=== PATIENT | female | born 1985 | race Caucasian/White ===

== ENCOUNTER 2017-04-23 19:54 | Observation (INO) ==
[2017-04-23] MEDS: *HR* Nalbuphine 20 MG/ML AMPUL IVP PRN ×2 (19:16→21:47)
[2017-04-23 19:18] LABS: Bilirubin,Urine Negative (Negative); Blood,Urine Moderate (Negative); Clarity,Urine Clear (Clear); Color,Urine Yellow (Yellow); Glucose,Urine (UA) Normal (Normal); Ketones,Urine Negative (Negative); Leukocyte Esterase,Urine Negative (Negative); Nitrite,Urine Negative (Negative); Protein,Urine Negative (Neg-Trace); Specific Gravity,Urine 1.014 (1.010-1.025); Urobilinogen,Urine Normal (Normal)
[2017-04-23 19:21] LABS: Bacteria,Urine None Seen per hpf (None-Few); Hyaline Casts,Urine None Seen per lpf (None-Few); RBC,Urine 0-3 per hpf (0-3); Squamous Epithelial Cell,Urine Moderate per lpf (None-Few); WBC,Urine 0-3 per hpf (0-3)
[2017-04-23 19:32] LABS: Amphetamine Screen,Urine Negative ng/mL (Cutoff=1000); Barbiturate Screen,Urine Negative ng/mL (Cutoff=200); Benzodiazepines Screen,Urine Negative ng/mL (Cutoff=200); Cannabinoid Screen,Urine Negative ng/mL (Cutoff = 50); Cocaine Screen,Urine Negative ng/mL (Cutoff= 300); Opiate Screen,Urine Negative ng/mL (Cutoff=300); Phencyclidine Screen,Urine Negative ng/mL (Cutoff=25)
--- NOTE | 2017-04-23 19:36 | OB/GYN History & Physical ---
Date of Encounter: 04/23/17 Time of Encounter: 19:31 Assessment and Plan (1) Right flank pain Current visit: Yes Status: Acute IV fluids Ancef 1 gram IV q8 hours CBC Retroperitoneal ultrasound Pain control POC per consult with Dr Gonzales Potential right obstructing stone per retroperitoneal ultrasound. Discussed case with Dr Gross at [facility]. Dr Gross accepts patient for transfer of care. (2) 31 weeks gestation of Current visit: Yes Status: Acute History of Present Illness Chief complaint: Right flank pain HPI: Ms. Camacho is a 31 year old at 31 weeks and 5 days that presents to labor and delivery triage with c/o flank pain that began yesterday. She states the pain is on right flank and radiates to the suprapubic region. She states that pain has gotten progressively worse. She denies fever, chills, and headache. She denies urinary symptoms, but states her urine stream is not as strong as it has been. She states positive movement. She denies cramps, vaginal bleeding, vaginal discharge, and vaginal leaking of fluid. She states she was diagnosed with bilateral kidney stones at the [facility] in [place] over the Summer. She stopped taking her calcium citrate when she had a positive test. Past Med Surg Social Fam HX - Past Medical History Psychiatric history: depression - Past Surgical History Surgical History: other - Social History Smoking Status: Never smoker Alcohol use: none Drug use: none - Family History Mother History Unknown: Yes Hx Family Cardiac Disorders: Yes (HTN) Obstetrical History - Pregnancies : 1 Para: 0 Term: 0 : 0 Ab's: 0 Livin Medications and Allergies Pantoprazole Sodium [Protonix] 40 mg PO DAILY 04/23/17 [History] Tablet 1 tab PO DAILY 04/23/17 [History] valACYclovir [Valtrex] 500 mg PO DAILY 04/23/17 [History] 3 Allergy/AdvReac Type Severity Reaction Status Date / Time doxycycline Allergy Hives Verified 04/23/17 18:51 pregabalin [From Lyrica] Allergy See Verified 04/23/17 18:49 Comments Leuprolide [From Lupron] AdvReac See Verified 04/23/17 18:51 Comments Review of System OB All systems PM: reviewed and no additional remarkable complaints except as stated Exam - Constitutional Constitutional: well developed, well nourished, no acute distress, average body habitus - HEENT HEENT: Normocephaly, Mucus Membranes Moist - Neck Neck exam: full ROM - Lungs Respiratory exam: CTAB - Cardiovascular Cardiovascular exam: RRR, +S1, +S2 - Abdomen Abdomen: Present: bowel sounds normal, gravid, non tender - Extremities Extremities exam: normal capillary refill, normal inspection, radial pulses palpable and symmetrical Deep Tendon Reflex Grade: 1+ Diminished - Uterus Uterus exam: Present: normal size, normal contour. Absent: tender - Comments Comments: Right flank and CVA tenderness. Results Result Diagrams: 04/23/17 19:20 Abnormal lab results Urine Blood Moderate (Negative) H 04/23/17 18:15 All other labs normal. - VTE Reasons for not Prescribing Prophylaxis: Treatment not Indicated - Low risk for VTE
[2017-04-23 19:37] LABS: Basophils # 0.1 K/mcL (0.0-0.2); Basophils % 0.5 %; Eosinophils # 0.1 K/mcL (0.0-0.6); Eosinophils % 0.8 %; Hematocrit 32.6 % (35.3-44.9); Hemoglobin 11.1 g/dL (11.5-15.4); Immature Granulocytes % 1.6 % (0-4); Lymphocytes # 1.1 K/mcL (0.6-4.6); Lymphocytes % 8.3 %; Mean Corpuscular Hemoglobin 30.2 pg (28.0-33.3); Mean Corpuscular Volume 88.6 fL (83.0-100.0); Mean Platelet Volume 9.8 fL (9.4-12.4); Monocytes # 0.9 K/mcL (0.0-1.3); Monocytes % 6.6 %; Neutrophils # 10.9 K/mcL (1.6-8.9); Platelet Count 164 K/mcL (140-400); Red Blood Count 3.68 M/mcL (3.82-4.97); Red Cell Distribution Width 12.7 % (11.5-14.5); Segmented Neutrophils % 82.2 %
[~2017-04-23 19:54] MED LIST: Ringers Solution, Lactated 1,000 ML IVC SCH; Ringers Solution, Lactated 1,000 ML ONE
[2017-04-23] MEDS ORDERED: ceFAZolin 1,000 MG in Water for inj. (sterile) 10 ML IVP SCH (20:00)
--- NOTE | 2017-04-23 21:51 | Discharge Summary ---
Date of Encounter: 04/23/17 Time of Encounter: 21:48 - Discharge Diagnosis (1) Right flank pain Priority: Primary Status: Acute Comments: Transfer via BLS squad with LR to [facility] labor and delivery Accepted by Dr Jurgen Gross at 2142 (2) 31 weeks gestation of Priority: Secondary Status: Acute - Discharge Medications Home Medications: Pantoprazole Sodium [Protonix] 40 mg PO DAILY 04/23/17 [History] Tablet 1 tab PO DAILY 04/23/17 [History] valACYclovir [Valtrex] 500 mg PO DAILY 04/23/17 [History] Allergies/Adverse Reactions: 3 Allergy/AdvReac Type Severity Reaction Status Date / Time doxycycline Allergy Hives Verified 04/23/17 18:51 pregabalin [From Lyrica] Allergy See Verified 04/23/17 18:49 Comments Leuprolide [From Lupron] AdvReac See Verified 04/23/17 18:51 Comments Data Procedures and tests throughout hospitalization: Laboratory Tests 04/23/17 04/23/17 04/23/17 18:15 18:15 19:20 WBC 13.3 H RBC 3.68 L Hgb 11.1 L Hct 32.6 L MCV 88.6 MCH 30.2 MCHC 34.0 RDW 12.7 Plt Count 164 MPV 9.8 Immature Gran % 1.6 Seg Neutrophils % 82.2 Lymphocytes % 8.3 Monocytes % 6.6 Eosinophils % 0.8 Basophils % 0.5 Neutrophils # 10.9 H Lymphocytes # 1.1 Monocytes # 0.9 Eosinophils # 0.1 Basophils # 0.1 Urine Color Yellow Urine Clarity Clear Urine pH 7.0 Ur Specific Apison 1.014 Urine Protein Negative Urine Glucose (UA) Normal Urine Ketones Negative Urine Blood Moderate H Urine Nitrite Negative Urine Bilirubin Negative Urine Urobilinogen Normal Ur Leukocyte Esterase Negative Urine Microscopic RBC 0-3 Urine Microscopic WBC 0-3 Ur Squamous Epith Cells Moderate H Urine Bacteria None Seen Hyaline Casts None Seen Ur Culture Indicated? NO Urine Opiates Screen Negative Ur Barbiturates Screen Negative Ur Phencyclidine Scrn Negative Ur Amphetamines Screen Negative U Benzodiazepines Scrn Negative Urine Cocaine Screen Negative U Marijuana (THC) Screen Negative Labs on day of discharge: Labs from last 24 hours 04/23/17 04/23/17 04/23/17 19:20 18:15 18:15 WBC 13.3 H RBC 3.68 L Hgb 11.1 L Hct 32.6 L MCV 88.6 MCH 30.2 MCHC 34.0 RDW 12.7 Plt Count 164 MPV 9.8 Immature Gran % 1.6 Seg Neutrophils % 82.2 Lymphocytes % 8.3 Monocytes % 6.6 Eosinophils % 0.8 Basophils % 0.5 Neutrophils # 10.9 H Lymphocytes # 1.1 Monocytes # 0.9 Eosinophils # 0.1 Basophils # 0.1 Urine Color Yellow Urine Clarity Clear Urine pH 7.0 Ur Specific Apison 1.014 Urine Protein Negative Urine Glucose (UA) Normal Urine Ketones Negative Urine Blood Moderate H Urine Nitrite Negative Urine Bilirubin Negative Urine Urobilinogen Normal Ur Leukocyte Esterase Negative Urine Microscopic RBC 0-3 Urine Microscopic WBC 0-3 Ur Squamous Epith Cells Moderate H Urine Bacteria None Seen Hyaline Casts None Seen Ur Culture Indicated? NO Urine Opiates Screen Negative Ur Barbiturates Screen Negative Ur Phencyclidine Scrn Negative Ur Amphetamines Screen Negative U Benzodiazepines Scrn Negative Urine Cocaine Screen Negative U Marijuana (THC) Screen Negative - Impressions ITS Impressions Retroperitoneum Ultrasound 04/23/17 20:00 IMPRESSION: Bilateral hydronephrosis, right greater than left. Suspected bilateral nephrolithiasis. Nonvisualization of right ureteral jet. The findings are concerning for possible obstructing right calculus. No significant postvoid residual. D/ / 04/23/2017 21:14:23 Milan Staton MD / bcarter Interpreting Provider: Milan Staton MD Date of admission: 04/23/17 17:58 Discharging clinician: Chetna Ro Anticipated date of discharge: 04/23/17 - Patient Status Disposition: Transfer Other Condition: Fair Functional capacity at discharge: independent ambulation Overall status at discharge: patient is not back to baseline - Discharge Instructions Follow Up With: Delvin Soto MD [Partnered Physician] - Hospital Course SCALEMAKER Reason for admission: other Discharge diagnosis: other Time Attestation: Total time spent providing and/or coordinating discharge services: Time Spent: Less than 30 minutes - VTE Reasons for not Prescribing Prophylaxis: Treatment not Indicated - Low risk for VTE
[2017-04-24] MEDS ORDERED: ceFAZolin 1,000 MG in Water for inj. (sterile) 10 ML IVP SCH
== END 2017-04-23 22:45 | disposition other institution (70) ==
LOC: 1NENULAB
PROVIDERS: ADMIT Obstetrics & Gynecology; ATTEND Obstetrics & Gynecology

== ENCOUNTER 2017-06-19 09:53 | Inpatient (IN) ==
[2017-06-19] MEDS ORDERED: CeFAZolin Premix DUPLEX 2,000 MG/50 ML BAG IVPB ONE (10:17)
[2017-06-19] MEDS ORDERED: Famotidine 20 MG/2 ML VIAL IVP PRN (10:17)
[2017-06-19] MEDS ORDERED: Metoclopramide 10 MG/2 ML VIAL IVP PRN ×2 (10:17→17:42)
[2017-06-19] MEDS ORDERED: *HR* FentaNYL (PF) 100 MCG/2 ML VIAL ONE (10:18)
[2017-06-19] MEDS ORDERED: Morphine Sulfate/PF 5mg/10mL Vial ONE (10:18)
[2017-06-19] MEDS ORDERED: *HR* Oxytocin 10 UNIT/ML VIAL IM ONE (10:19)
[2017-06-19] MEDS ORDERED: Water for inj. (sterile) 10 ML IV ONE (10:19)
[2017-06-19] MEDS ORDERED: Ondansetron 4 MG/2 ML VIAL ONE (10:19)
[2017-06-19] MEDS ORDERED: EPHEDrine 50 MG/ML VIAL ONE (10:19)
[2017-06-19] MEDS ORDERED: Ringers Solution, Lactated 1,000 ML IVC SCH ×2 (10:30→11:30)
[2017-06-19 10:47] LABS: Basophils % 0.4 %; Eosinophils # 0.1 K/mcL (0.0-0.6); Eosinophils % 1.1 %; Hematocrit 34.9 % (35.3-44.9); Hemoglobin 11.7 g/dL (11.5-15.4); Immature Granulocytes % 1.8 % (0-4); Lymphocytes # 1.1 K/mcL (0.6-4.6); Mean Corpuscular HGB Conc 33.5 g/dL (31.6-35.5); Mean Corpuscular Hemoglobin 29.4 pg (28.0-33.3); Mean Corpuscular Volume 87.7 fL (83.0-100.0); Mean Platelet Volume 10.2 fL (9.4-12.4); Monocytes # 0.7 K/mcL (0.0-1.3); Monocytes % 6.6 %; Neutrophils # 8.2 K/mcL (1.6-8.9); Platelet Count 185 K/mcL (140-400); Red Blood Count 3.98 M/mcL (3.82-4.97); Red Cell Distribution Width 13.3 % (11.5-14.5); Segmented Neutrophils % 79.1 %
--- NOTE | 2017-06-19 10:52 | OB/GYN History & Physical ---
Date of Encounter: 06/19/17 Time of Encounter: 10:48 Assessment and Plan (1) delivery indicated due to breech presentation Current visit: Yes Status: Acute Scheduled this afternoon with Dr. Talbot CS orders placed including prophylactic abx Admit for scheduled surgery (2) with 39 completed weeks gestation Current visit: Yes Status: Acute (3) Hx of herpes genitalis Current visit: Yes Status: Acute On Valtrex Scheduled CS as above History of Present Illness Chief complaint: scheduled C/S for breech presentation HPI: Ms. Camacho is a 32 year old female at 39w6d here for scheduled c- section due to breech presentation. Gestation otherwise uncomplicated; no history of pre-eclampsia, PIH, or GDM. Patient denies any acute complaints including headache, visual disturbance/blurring, palpitations, SOA, nausea/ vomiting, dysuria, or worsening pedal edema (does have some ongoing edema that is unchanged today). + movement, -VB, -LOF. Past Med Surg Social Fam HX - Past Medical History Attestation: Yes The following information was validated with the patient. Source: patient Medical history: kidney stones Psychiatric history: depression - Past Surgical History Surgical History: other (multiple laparoscopies for endometriosis) - Social History Smoking Status: Never smoker Alcohol use: none Drug use: none - Family History Mother Adopted: No Living Status: Still Living Hx Family Cardiac Disorders: No Hx Family Respiratory Disorders: No Hx Family Cancer: Yes (skin cancer) Hx Family GI Disorders: No Hx Family Genitourinary Disorders: No Hx Family Endocrine Disorder: No Hx Family Musculoskeletal Disorders: No Hx Family Neuromuscular Disorders: No Hx Family Neurologic Disorders: No Hx Family HEENT Disorders: No Hx Family Autoimmune Disorders: No Hx Family Reproductive Disorders: No Hx Family Psychosocial Disorders: No Hx Family Medical Disorders: No Obstetrical History - Pregnancies : 1 Para: 0 Medications and Allergies Pantoprazole Sodium [Protonix] 40 mg PO DAILY 04/23/17 [History] Tablet 1 tab PO DAILY 04/23/17 [History] valACYclovir [Valtrex] 500 mg PO DAILY 04/23/17 [History] 3 Allergy/AdvReac Type Severity Reaction Status Date / Time doxycycline Allergy Hives Verified 04/23/17 18:51 pregabalin [From Lyrica] Allergy See Verified 04/23/17 18:49 Comments Leuprolide [From Lupron] AdvReac See Verified 04/23/17 18:51 Comments Review of System OB All systems PM: reviewed and no additional remarkable complaints except as stated Exam - Constitutional Constitutional: well developed, well nourished, no acute distress - HEENT HEENT: Normocephaly - Lungs Respiratory exam: CTAB - Cardiovascular Cardiovascular exam: RRR, +S1, +S2 - Abdomen Abdomen: Present: gravid Results Result Diagrams: 06/19/17 10:20 All other labs normal. - Attending Attestation I examined this patient and my medical decision-making was reviewed with the Resident Physician. I agree with the documented findings, disposition and treatment plan as described except to the extent set forth below. Patient is scanned at bedside to confirm Leopolds of breech presentation. Risks, benefits, and alternatives are discussed. Patient wishes to proceed with primary section and informed consent is obtained. All questions answered for the patient and her family. Carolyn Talbot DO
--- NOTE | 2017-06-19 11:15 | Anesthesia Evaluation PreOp ---
Date of Encounter: 06/19/17 Time of Encounter: 11:00 - Past History Planned Operation: Primary Cardiac History: Denies any Significant Hx Pulmonary History: Denies Any Significant HX GROUNDING ENGINEER History: Denies Any Significant HX Other Medical History: GERD Anesthesia History: No Prior Anesthetic Complications : Yes (39 week 6 days) Test: Positive () Alcohol Use: none Drug use: none Medications and Allergies Pantoprazole Sodium [Protonix] 40 mg PO DAILY 04/23/17 [History] Tablet 1 tab PO DAILY 04/23/17 [History] valACYclovir [Valtrex] 500 mg PO DAILY 04/23/17 [History] 3 Allergy/AdvReac Type Severity Reaction Status Date / Time doxycycline Allergy Hives Verified 04/23/17 18:51 pregabalin [From Lyrica] Allergy See Verified 04/23/17 18:49 Comments Leuprolide [From Lupron] AdvReac See Verified 04/23/17 18:51 Comments - Meds/Allergy Pre-op Review Medications Reviewed: Yes Allergies Reviewed: Yes Beta Blockers on Current Med List: No Anesthesia Results - Labs 06/19/17 10:20 Anesthesia Exam O2 Sat Height 1.73 m Height 1.73 m Weight 93.2 kg Height: 5'8 Weight: 93 kg NPO (# of Hours): MN Pain Scale: 0 - HEENT Pupil (Motor): Pupils equal, EOMI Mallampati: II Teeth: Normal Oral Opening: Greater than 3 - GROUNDING ENGINEER LOC: Oriented GROUNDING ENGINEER Motor: Normal RUE, Normal LUE, Normal RLE, Normal LLE, Normal Face GROUNDING ENGINEER Sensory: Normal: RUE, LUE, RLE, LLE, Face - Cardiac Rhythm: Regular Murmur: None JVD: No Carotid Bruit: No - Pulmonary Breath Sounds: bilateral Clear Respiratory Effort: Symmetrical Anesthesia Assess/Plan ASA Score: 2 Modified Vanita Scale for Level of Consciousness: Cooperative, oriented, and tranquil Anesthetic Plan: Regional Monitoring Plan: Standard Monitors Recovery Plan: PACU (Discussed SAB, possible GA, agrees to proceed)
[2017-06-19 11:16] LABS: Amphetamine Screen,Urine Negative ng/mL (Cutoff=1000); Barbiturate Screen,Urine Negative ng/mL (Cutoff=200); Benzodiazepines Screen,Urine Negative ng/mL (Cutoff=200); Cannabinoid Screen,Urine Negative ng/mL (Cutoff = 50); Cocaine Screen,Urine Negative ng/mL (Cutoff= 300); Opiate Screen,Urine Negative ng/mL (Cutoff=300); Phencyclidine Screen,Urine Negative ng/mL (Cutoff=25)
[2017-06-19] MEDS ORDERED: Naloxone 0.4 MG/ML INJ IVP PRN (11:24)
[2017-06-19] MEDS ORDERED: Acetaminophen IV 1,000 MG/100 ML INFUS..BTL IVPB ONE (11:24)
[2017-06-19] MEDS ORDERED: *HR* OxyCODONE/APAP 5/325 TABLET PO PRN ×2 (11:24→17:14)
[2017-06-19] MEDS ORDERED: Ondansetron 4 MG/2 ML VIAL IVP ONE (11:24)
[2017-06-19] MEDS ORDERED: Ringers Solution, Lactated 1,000 ML ONE (14:15)
[2017-06-19] MEDS ORDERED: *HR* OxyCODONE Immed Rel 5 MG TABLET PO PRN ×2 (15:15→17:42)
[2017-06-19] MEDS ORDERED: MORPHINE SUL Oral CONC 10 MG/0.5 ML ORAL.SYG SL PRN (15:15)
--- NOTE | 2017-06-19 15:16 | OB/GYN Procedure Note ---
Section - Date of procedure: 06/19/17 Preop diagnosis: breech Post-op diagnosis: same Procedure: section, primary low transverse Surgeon: Carolyn Talbot Estimated blood loss (cc): 500 Was there an high school assistant principal present: Yes Software Business Analyst: Sarbina Resendiz Television Engineering Teacher: Reece Elizondo Anesthesia Type: Spinal section complications: none Disposition: L&D Recovery Room Specimens: Placenta (hold) - Infant (s) Infant A Delivery Date: 06/19/17 Delivery Time: 14:29 Presentation: tobi breech Gender: Female Viability: Viable Pounds: 7 Ounces: 0 Gram Weight: 3.165 kg at 1 minute: 8 at 5 minutes: 9 Specimens collected: cord blood Placenta: spontaneous Cord: nuchal cord, 3 umbilical vessels - Narrative Narrative: Patient was taken to the operative suite and placed under spinal anesthetic. She was then prepped and draped in normal sterile fashion in the dorsal supine position. Timeout was then performed. Antibiotics were given at room time. SCDs are on and active. Pfannenstiel skin incision is then made and carried through to underlying layer of fascia with the Bovie. The fascia was then incised in the midline and incision extended laterally with the Myers scissors. The fascia was tented up and dissected off the rectus muscles sharply. The rectus muscles were in the midline and the peritoneum was tented up and entered sharply with the Metzenbaum scissors. The peritoneal incision was then extended bluntly. The bladder blade was then inserted and the vesicouterine peritoneum was entered sharply. Bladder flap was created digitally. A low transverse uterine incision was then made. The infant breech was brought to the incision and the infant was delivered using fundal pressure. There was a loose nuchal cord that was delivered and reduced. Cord was clamped and cut. Infant was handed to waiting nursery staff. Placenta delivered spontaneously complete and intact with a three -vessel cord. The uterus was cleared of all clots and debris using moist laparotomy sponge. The uterine incision was then closed using 0 Vicryl in a running locked fashion. A second layer of the same suture was used to obtain excellent hemostasis. The abdomen was then cleared of all clots and debris using copious irrigation. The fascial incision was then closed using 0 Vicryl in a running fashion. The skin was closed using 4-0 Vicryl in a subcuticular fashion. Steri- Strips and sterile dressing are then placed. Mother and infant taken to recovery in stable condition.
--- NOTE | 2017-06-19 17:14 | Anesthesia Evaluation Post Op ---
Date of Encounter: 06/19/17 Time of Encounter: 17:13 - Lungs Lungs: Clear Ascult./Percussion - Airway Airway: Non-obstructed - Cardiovascular Regular Rate, Baseline Rhythm - Mental Status Mental Status: Alert & Oriented, Answers Appropriately - Pain Pain Scale: 8 (refused regional tap block, will maintain on PO meds post op on ) Pain Scale used: Numeric (1 - 10) - Nausea Vomiting Nausea Vomiting: Not Present - Hydration Hydration: Ice chips, Marti catheter - Discharge PostOp Status: Transfer Patient to floor
[2017-06-19] MEDS ORDERED: Sennosides 8.6 MG TABLET PO PRN (17:42)
[2017-06-19] MEDS ORDERED: Ondansetron 4 MG/2 ML VIAL IVP PRN (17:42)
[2017-06-19] MEDS ORDERED: Acetaminophen 325 MG TABLET PO PRN (17:42)
[2017-06-19] MEDS ORDERED: Rho Immune Globulin 1,500 UNIT SYRINGE IM ONE (17:42)
[2017-06-19] MEDS: Oxytocin 20 units/ LR 1000 mL 20 UNIT/1,000 ML BAG IVC SCH (17:51)
[2017-06-20] MEDS ORDERED: *HR* Nalbuphine 20 MG/ML AMPUL IVP ONE (00:17)
[2017-06-20] MEDS: Simethicone 80 MG TAB.CHEW PO PRN ×3 (00:20→17:34)
[2017-06-20] MEDS: Oxytocin 20 units/ LR 1000 mL 20 UNIT/1,000 ML BAG IVC SCH (01:30)
[2017-06-20] MEDS: *HR* OxyCODONE/APAP 5/325 TABLET PO PRN ×3 (03:03→22:29)
[2017-06-20 04:25] LABS: Basophils % 0.4 %; Eosinophils # 0.1 K/mcL (0.0-0.6); Eosinophils % 0.9 %; Hematocrit 27.4 % (35.3-44.9); Immature Granulocytes % 1.2 % (0-4); Lymphocytes % 10.6 %; Mean Corpuscular HGB Conc 33.9 g/dL (31.6-35.5); Mean Corpuscular Hemoglobin 29.6 pg (28.0-33.3); Mean Corpuscular Volume 87.3 fL (83.0-100.0); Mean Platelet Volume 10.2 fL (9.4-12.4); Monocytes # 0.8 K/mcL (0.0-1.3); Monocytes % 7.8 %; Neutrophils # 7.6 K/mcL (1.6-8.9); Platelet Count 136 K/mcL (140-400); Red Blood Count 3.14 M/mcL (3.82-4.97); Red Cell Distribution Width 13.4 % (11.5-14.5); Segmented Neutrophils % 79.1 %
[2017-06-20 04:39] LABS: Hemoglobin 9.3 g/dL (11.5-15.4)
[2017-06-20] MEDS: Ibuprofen 600 MG TABLET PO PRN ×3 (05:10→20:41)
[2017-06-20] MEDS: Prenatal Vit/FA 1 EACH TABLET PO SCH (08:29)
--- NOTE | 2017-06-20 09:29 | OB/GYN Progress Note ---
Date of Encounter: 06/20/17 Time of Encounter: 09:25 - Assessment and Plan (1) S/P section Current Visit: Yes Status: Acute Stable POD #1. Continue current management, anticipate D/c tomorrow. (2) anemia Current Visit: Yes Status: Acute continue iron supplementation. Subjective - Subjective Principal diagnosis: Patient reports: appetite normal, voiding normally, pain well controlled, ambulating normally Mabie: doing well Objective - Vital Signs Latest vital signs: Vital Signs Temp Pulse Resp BP Pulse Ox 06/20/17 08:10 98.1 F 78 16 104/51 96 06/20/17 04:25 98.5 F 90 14 105/61 96 06/20/17 00:05 99.3 F 90 16 94/62 98 06/19/17 20:45 98.9 F 83 16 117/67 99 06/19/17 19:45 97.7 F 76 14 121/63 95 06/19/17 18:56 97.6 F 83 16 111/68 98 06/19/17 17:45 98.1 F 80 16 111/68 99 Intake and Output 06/19/17 06/20/17 06/20/17 23:59 07:59 15:59 Intake Total 1119 / 1119 610 / 610 Output Total 600 / 600 1425 / 1425 300 / 300 Balance -600 / -600 -306 / -306 310 / 310 Intake: IV Fluids 999 / 999 Pitocin 20 unit In 1,000 ml @ 999 / 999 125 mls/hr IVC .Q8H ZACK Rx#: [id number] Oral 120 / 120 610 / 610 Output: Urine 300 / 300 Catheter 600 / 600 1425 / 1425 Other: Meal Breakfast Percent of Meal Consumed 100% Weight 91.1 kg 91 kg Patient Weight 06/20/17 23:59 Weight 91 kg - Exam Lungs: bilateral: normal Chest: Normal S1, Normal S2 Extremities: Present: normal Abdomen: Present: normal appearance, soft Incision: Present: dressed Comments: fundus at U - Labs Labs: Laboratory Results - last 24 hr 06/19/17 06/19/17 06/19/17 10:17 10:20 15:00 WBC 10.4 RBC 3.98 Hgb 11.7 Hct 34.9 L MCV 87.7 MCH 29.4 MCHC 33.5 RDW 13.3 Plt Count 185 MPV 10.2 Immature Gran % 1.8 Seg Neutrophils % 79.1 Lymphocytes % 11.0 Monocytes % 6.6 Eosinophils % 1.1 Basophils % 0.4 Neutrophils # 8.2 Lymphocytes # 1.1 Monocytes # 0.7 Eosinophils # 0.1 Basophils # 0.0 Urine Opiates Screen Negative Ur Barbiturates Screen Negative Ur Phencyclidine Scrn Negative Ur Amphetamines Screen Negative U Benzodiazepines Scrn Negative Urine Cocaine Screen Negative U Marijuana (THC) Screen Negative Baby's Blood Type A RH NEGATIVE Mother's Blood Type A RH NEGATIVE Rhogam Indicated NO 06/20/17 04:07 WBC 9.6 RBC 3.14 L Hgb 9.3 L D Hct 27.4 L MCV 87.3 MCH 29.6 MCHC 33.9 RDW 13.4 Plt Count 136 L MPV 10.2 Immature Gran % 1.2 Seg Neutrophils % 79.1 Lymphocytes % 10.6 Monocytes % 7.8 Eosinophils % 0.9 Basophils % 0.4 Neutrophils # 7.6 Lymphocytes # 1.0 Monocytes # 0.8 Eosinophils # 0.1 Basophils # 0.0 Urine Opiates Screen Ur Barbiturates Screen Ur Phencyclidine Scrn Ur Amphetamines Screen U Benzodiazepines Scrn Urine Cocaine Screen U Marijuana (THC) Screen Baby's Blood Type Mother's Blood Type Rhogam Indicated
[2017-06-20] MEDS ORDERED: *HR* OxyCODONE/APAP 5/325 TABLET PO ONE (17:41)
[2017-06-20 21:43] VITALS: BP 102/65
[2017-06-21] MEDS: *HR* OxyCODONE/APAP 5/325 TABLET PO PRN (07:25)
[2017-06-21] MEDS: Prenatal Vit/FA 1 EACH TABLET PO SCH (08:44)
[2017-06-21] MEDS: Ibuprofen 600 MG TABLET PO PRN (08:47)
--- NOTE | 2017-06-21 09:10 | Discharge Summary ---
Date of Encounter: 06/21/17 Time of Encounter: 09:17 - Discharge Diagnosis (1) delivery indicated due to breech presentation Priority: Primary Status: Acute Comments: POD#2 -- well-healing incision site without dehiscence nor any local or systemic signs of infection Will discharge home this afternoon in good/stable condition Rx for PO analgesia as well as stool softener (2) with 39 completed weeks gestation Priority: Primary Status: Acute (3) Hx of herpes genitalis Priority: Secondary Status: Chronic - Discharge Medications Prescriptions: OxyCODONE/APAP 5/325 [Percocet 5/325 MG] 1 each PO Q4HR PRN 7 Days #20 tablet PRN Reason: Moderate pain 4-6 Acetaminophen [Tylenol] 325 mg PO Q6HR PRN #30 tablet PRN Reason: Fever/Pain Docusate [Colace] 100 mg PO BID #60 capsule Ferrous Sulfate 325 mg PO DAILY #30 tablet Mupirocin [Bactroban Oint] 1 appl TP BID #1 tube Home Medications: Pantoprazole Sodium [Protonix] 40 mg PO DAILY 04/23/17 [History] Tablet 1 tab PO DAILY 04/23/17 [History] valACYclovir [Valtrex] 500 mg PO DAILY 04/23/17 [History] Acetaminophen [Tylenol] 325 mg PO Q6HR PRN #30 tablet 06/21/17 [Rx] Docusate [Colace] 100 mg PO BID #60 capsule 06/21/17 [Rx] Ferrous Sulfate 325 mg PO DAILY #30 tablet 06/21/17 [Rx] Mupirocin [Bactroban Oint] 1 appl TP BID #1 tube 06/21/17 [Rx] OxyCODONE/APAP 5/325 [Percocet 5/325 MG] 1 each PO Q4HR PRN 7 Days #20 tablet [Rx] Vit/FA 1 each PO DAILY tablet 06/21/17 [Rx] Allergies/Adverse Reactions: 3 Allergy/AdvReac Type Severity Reaction Status Date / Time doxycycline Allergy Hives Verified 04/23/17 18:51 pregabalin [From Lyrica] Allergy See Verified 04/23/17 18:49 Comments Leuprolide [From Lupron] AdvReac See Verified 04/23/17 18:51 Comments Data Procedures and tests throughout hospitalization: Laboratory Tests 06/19/17 06/19/17 06/19/17 10:17 10:20 15:00 WBC 10.4 RBC 3.98 Hgb 11.7 Hct 34.9 L MCV 87.7 MCH 29.4 MCHC 33.5 RDW 13.3 Plt Count 185 MPV 10.2 Immature Gran % 1.8 Seg Neutrophils % 79.1 Lymphocytes % 11.0 Monocytes % 6.6 Eosinophils % 1.1 Basophils % 0.4 Neutrophils # 8.2 Lymphocytes # 1.1 Monocytes # 0.7 Eosinophils # 0.1 Basophils # 0.0 Urine Opiates Screen Negative Ur Barbiturates Screen Negative Ur Phencyclidine Scrn Negative Ur Amphetamines Screen Negative U Benzodiazepines Scrn Negative Urine Cocaine Screen Negative U Marijuana (THC) Screen Negative Baby's Blood Type A RH NEGATIVE Mother's Blood Type A RH NEGATIVE Rhogam Indicated NO 06/20/17 04:07 WBC 9.6 RBC 3.14 L Hgb 9.3 L D Hct 27.4 L MCV 87.3 MCH 29.6 MCHC 33.9 RDW 13.4 Plt Count 136 L MPV 10.2 Immature Gran % 1.2 Seg Neutrophils % 79.1 Lymphocytes % 10.6 Monocytes % 7.8 Eosinophils % 0.9 Basophils % 0.4 Neutrophils # 7.6 Lymphocytes # 1.0 Monocytes # 0.8 Eosinophils # 0.1 Basophils # 0.0 Urine Opiates Screen Ur Barbiturates Screen Ur Phencyclidine Scrn Ur Amphetamines Screen U Benzodiazepines Scrn Urine Cocaine Screen U Marijuana (THC) Screen Baby's Blood Type Mother's Blood Type Rhogam Indicated Date of admission: 06/19/17 09:53 Primary care physician: PCP NONE Discharging clinician: Lalit Lepe Anticipated date of discharge: 06/21/17 - Patient Status Disposition: Home, Self-Care Condition: Good Functional capacity at discharge: independent ambulation Overall status at discharge: patient is progressing back to baseline - Discharge Instructions Follow Up With: NONE,PCP [Primary Care Provider] - - Diet and Activity Activity: increase activity as tolerated Diet: regular diet 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 No acute complaints. VSS and overnight course uneventful. Soreness around incision site. No fevers/chills/myalgias. Has passed flatus, but has not had bowel movement as of yet and complains of bloating abdominal pain. Overall, pain is well-controlled with PO meds and patient is able to ambulate independently today. Breast feeding and has own pump. Desires home discharge today. Will send home with PO Rx for pain and colace. Return/Call precautions discussed with patient regarding post-op c- section. - Date of procedure: 06/19/17 Preop diagnosis: breech Post-op diagnosis: same Procedure: section, primary low transverse Surgeon: Carolyn Talbot Estimated blood loss (cc): 500 Was there an dyer assistant present: Yes Demolition Engineer: Sabrina Resendiz Manager Property: Reece Elizondo Anesthesia Type: Spinal section complications: none Disposition: L&D Recovery Room Specimens: Placenta (hold) - (s) A Delivery Date: 06/19/17 Delivery Time: 14:29 Presentation: tobi breech Gender: Female Viability: Viable Pounds: 7 Ounces: 0 Gram Weight: 3.165 kg at 1 minute: 8 at 5 minutes: 9 Specimens collected: cord blood Placenta: spontaneous Cord: nuchal cord, 3 umbilical vessels - Narrative Narrative: Patient was taken to the operative suite and placed under spinal anesthetic. She was then prepped and draped in normal sterile fashion in the dorsal supine position. Timeout was then performed. Antibiotics were given at room time. SCDs are on and active. Pfannenstiel skin incision is then made and carried through to underlying layer of fascia with the Bovie. The fascia was then incised in the midline and incision extended laterally with the Myers scissors. The fascia was tented up and dissected off the rectus muscles sharply. The rectus muscles were in the midline and the peritoneum was tented up and entered sharply with the Metzenbaum scissors. The peritoneal incision was then extended bluntly. The bladder blade was then inserted and the vesicouterine peritoneum was entered sharply. Bladder flap was created digitally. A low transverse uterine incision was then made. The breech was brought to the incision and the infant was delivered using fundal pressure. There was a loose nuchal cord that was delivered and reduced. Cord was clamped and cut. Infant was handed to waiting nursery staff. Placenta delivered spontaneously complete and intact with a three -vessel cord. The uterus was cleared of all clots and debris using moist laparotomy sponge. The uterine incision was then closed using 0 Vicryl in a running locked fashion. A second layer of the same suture was used to obtain excellent hemostasis. The abdomen was then cleared of all clots and debris using copious irrigation. The fascial incision was then closed using 0 Vicryl in a running fashion. The skin was closed using 4-0 Vicryl in a subcuticular fashion. Steri- Strips and sterile dressing are then placed. Time Attestation: Total time spent providing and/or coordinating discharge services: Exam - Constitutional Vitals: Gen: AOx3, no acute distress, well-nourished HEENT: normocephalic, no scleral icterus/injection, pupils equal/round, oral mucosa pink/moist Cardio: RRR without murmurs or gallops Pulm: CTAB, no wheezes/rales/rhonchi, normal respiratory effort Abd: soft, nontender, uterine fundus below umbilicus and firm; incision well-healing, dry, and without redness/warmth/drainage/dehiscence Ext/Neuro: pulses 2+ b/l DP, no significant pedal edema Temp Pulse Resp BP Pulse Ox 98.4 F 86 16 102/65 97 06/20/17 19:40 06/20/17 19:40 06/20/17 19:40 06/20/17 19:40 06/20/17 19:40 General appearance IM: A&O X 3 - Respiratory Respiratory exam: Present: CTAB - Cardiovascular Cardiovascular exam IM: Present: RRR - GI/Abdominal Incision: intact - Uterine Tone: Firm - Neurological Exam Neurological exam: normal gait, oriented X3 - Psychiatric Additional comments: reports good mood - VTE Documentation of Mechanical Device: Intermittent pneumatic compression device
== END 2017-06-21 12:54 | disposition home or self-care (01) | DRG 765 ==
LOC: 1NENULAB 09:53 → 1NENUOBS 17:47
PROVIDERS: ADMIT Student in an Organized Health Care Education/Training Program; ATTEND Obstetrics & Gynecology

== ENCOUNTER → 2018-11-29 18:33 | Observation (INO) ==
[2018-11-29 14:13] LABS: Bilirubin,Urine Negative (Negative); Blood,Urine Large (Negative); Clarity,Urine Cloudy (Clear); Color,Urine Red (Yellow); Glucose,Urine (UA) Normal (Normal); Ketones,Urine Negative (Negative); Leukocyte Esterase,Urine Small (Negative); Nitrite,Urine Negative (Negative); PH,Urine 6.5 pH Units (5.0-8.0); Protein,Urine 30 mg/dL (Neg-Trace); Specific Gravity,Urine 1.022 (1.010-1.025); Urobilinogen,Urine Normal (Normal)
[2018-11-29 14:16] LABS: Bacteria,Urine None Seen per hpf (None-Few); Hyaline Casts,Urine None Seen per lpf (None-Few); RBC,Urine TNTC per hpf (0-3); Squamous Epithelial Cell,Urine Many per lpf (None-Few)
--- NOTE | 2018-11-29 14:20 | OB/GYN Progress Note ---
Date of Encounter: 11/29/18 Time of Encounter: 14:14 - Assessment and Plan (1) 26 weeks gestation of Current Visit: Yes Status: Acute Retroperitoneal ultrasound - kidney stone left side, normal kidney size Urinalysis - hematuria CBC - normal IV fluids Pain control Anticipate antibiotics, pain control, and forcing fluids, vs transfer to [facility] for management (stent vs urostomy) POC per consult with Dr Leslie UPDATE: observation on (2) Left flank pain Current Visit: Yes Status: Acute (3) Hematuria Current Visit: Yes Status: Acute Qualifiers: Hematuria type: gross Qualified Code(s): R31.0 - Gross hematuria (4) Kidney stone on left side Current Visit: Yes Status: Acute Place in observation Pain control Flowmax IV fluids Strain urine POC per consult with Dr Leslie Subjective - Subjective Principal diagnosis: hematuria Interval history: Ms Camacho is a at 26 weeks and 3 days that presents to triage with c/o hematuria and mild pain that began this morning. She states that her pain has progressively worsened and describes it as aching in her left flank. She has a history of kidney stones with her previous . Her previous was a delivery for breech presentation. She is scheduled for repeat with Dr Soto. She states positive movement. She denies headaches, visual disturbances, epigastric pain, and leaking of fluid. Antepartum ROS: movement normal, no loss of fluid, no vaginal bleeding, no contractions Objective - Vital Signs Vital Signs: Intake and Output 11/28/18 11/29/18 11/29/18 23:59 07:59 15:59 Other: Weight 94 kg Patient Weight 11/29/18 23:59 Weight 94 kg - Exam FHR: auscultation normal FHR comments: Appropriate for gestation. FHTs 135 with moderate variability and 15 x 15 accels and no decels. No contractions per toco Auscultation: bilateral: normal Abdomen: Present: normal appearance, soft, gravid, tenderness (Left CVA tenderness) Uterus: Present: normal. Absent: firm, tenderness
[2018-11-29 14:22] LABS: Amphetamine Screen,Urine Negative ng/mL (Cutoff=1000); Barbiturate Screen,Urine Negative ng/mL (Cutoff=200); Benzodiazepines Screen,Urine Negative ng/mL (Cutoff=200); Cannabinoid Screen,Urine Negative ng/mL (Cutoff = 50); Cocaine Screen,Urine Negative ng/mL (Cutoff= 300); Opiate Screen,Urine Negative ng/mL (Cutoff=300); Phencyclidine Screen,Urine Negative ng/mL (Cutoff=25)
[2018-11-29] MEDS: *HR* FentaNYL (PF) 100 MCG/2 ML VIAL IVP PRN ×2 (15:30→16:32)
[~2018-11-29 18:33] MED LIST changes: +*HR* FentaNYL (PF) 100 MCG/2 ML VIAL IVP ONE; +*HR* Nalbuphine 10 MG/ML AMPUL IV PRN; +*HR* OxyCODONE Immed Rel 5 MG TABLET PO PRN; +*HR* Promethazine 25 MG/ML VIAL IVP PRN; +Ondansetron ODT 4 MG TAB.RAPDIS SL PRN; +cefTRIAXone 2,000 MG in Water for inj. (sterile) 20 ML IVP ONE
== END | disposition other institution (70) ==
LOC: 1NENULAB
PROVIDERS: ADMIT Advanced Practice Midwife; ATTEND Advanced Practice Midwife

== ENCOUNTER → 2019-02-12 06:54 | Observation (INO) | END | disposition home or self-care (01) | LOC: 1NENULAB | PROVIDERS: ADMIT Registered Nurse; ATTEND Registered Nurse ==

== ENCOUNTER → 2019-02-18 23:49 | Observation (INO) ==
[2019-02-18 22:09] LABS: Amphetamine Screen,Urine Negative ng/mL (Cutoff=1000); Barbiturate Screen,Urine Negative ng/mL (Cutoff=200); Benzodiazepines Screen,Urine Negative ng/mL (Cutoff=200); Cannabinoid Screen,Urine Negative ng/mL (Cutoff = 50); Cocaine Screen,Urine Negative ng/mL (Cutoff= 300); Opiate Screen,Urine Negative ng/mL (Cutoff=300); Phencyclidine Screen,Urine Negative ng/mL (Cutoff=25)
[2019-02-18 22:22] LABS: Bacteria,Urine None Seen per hpf (None-Few); Bilirubin,Urine Negative (Negative); Blood,Urine Small (Negative); Clarity,Urine Clear (Clear); Color,Urine Yellow (Yellow); Glucose,Urine (UA) Normal (Normal); Hyaline Casts,Urine None Seen per lpf (None-Few); Ketones,Urine Negative (Negative); Leukocyte Esterase,Urine Trace (Negative); Nitrite,Urine Negative (Negative); Protein,Urine Negative (Neg-Trace); RBC,Urine 0-3 per hpf (0-3); Specific Gravity,Urine 1.015 (1.010-1.025); Squamous Epithelial Cell,Urine Many per lpf (None-Few); Urobilinogen,Urine Normal (Normal); WBC,Urine 0-3 per hpf (0-3)
== END | disposition home or self-care (01) ==
LOC: 1NENULAB
PROVIDERS: ADMIT Registered Nurse; ATTEND Registered Nurse

== ENCOUNTER 2019-02-27 05:43 | Inpatient (IN) ==
[2019-02-27] MEDS ORDERED: Naloxone 0.4 MG/ML INJ IVP PRN (05:55)
[2019-02-27] MEDS ORDERED: Metoclopramide 10 MG/2 ML VIAL IVP PRN ×2 (05:55→14:22)
[2019-02-27] MEDS ORDERED: Famotidine 20 MG/2 ML VIAL IVP PRN (05:55)
[2019-02-27] MEDS ORDERED: CeFAZolin Premix DUPLEX 2,000 MG/50 ML BAG IVPB ONE (05:57)
[2019-02-27] MEDS ORDERED: Ringers Solution, Lactated 1,000 ML IVC SCH ×2 (06:00→14:22)
[2019-02-27 06:49] LABS: Basophils % 0.4 %; Eosinophils # 0.1 K/mcL (0.0-0.6); Eosinophils % 1.2 %; Hematocrit 34.4 % (35.3-44.9); Hemoglobin 11.4 g/dL (11.5-15.4); Immature Granulocytes % 2.2 % (0-4); Lymphocytes # 1.2 K/mcL (0.6-4.6); Lymphocytes % 11.9 %; Mean Corpuscular HGB Conc 33.1 g/dL (31.6-35.5); Mean Corpuscular Hemoglobin 30.2 pg (28.0-33.3); Mean Platelet Volume 10.7 fL (9.4-12.4); Monocytes # 0.7 K/mcL (0.0-1.3); Monocytes % 7.1 %; Neutrophils # 7.8 K/mcL (1.6-8.9); Platelet Count 147 K/mcL (140-400); Red Blood Count 3.78 M/mcL (3.82-4.97); Red Cell Distribution Width 13.8 % (11.5-14.5); Segmented Neutrophils % 77.2 %; White Blood Count 10.1 K/mcL (4.3-11.1)
[2019-02-27 07:03] LABS: Amphetamine Screen,Urine Negative ng/mL (Cutoff=1000); Barbiturate Screen,Urine Negative ng/mL (Cutoff=200); Benzodiazepines Screen,Urine Negative ng/mL (Cutoff=300); Cannabinoid Screen,Urine Negative ng/mL (Cutoff = 50); Cocaine Screen,Urine Negative ng/mL (Cutoff= 300)
[2019-02-27 07:04] LABS: Opiate Screen,Urine Negative ng/mL (Cutoff=300); Phencyclidine Screen,Urine Negative ng/mL (Cutoff=25)
[2019-02-27] MEDS ORDERED: EPHEDrine 50 MG/ML VIAL ONE (07:12)
[2019-02-27] MEDS ORDERED: *HR* Morphine Sulfate/PF 10 MG/10 ML AMPUL ONE (07:12)
[2019-02-27] MEDS ORDERED: *HR* Oxytocin 10 UNIT/ML VIAL IM ONE ×2 (07:13→10:48)
[2019-02-27] MEDS ORDERED: *HR* FentaNYL (PF) 100 MCG/2 ML VIAL ONE (07:13)
[2019-02-27] MEDS ORDERED: Ondansetron 4 MG/2 ML VIAL ONE (10:04)
[2019-02-27] MEDS ORDERED: Ringers Solution, Lactated 1,000 ML ONE (10:48)
[2019-02-27] MEDS ORDERED: Ibuprofen 400 MG TABLET PO PRN ×2 (11:00→14:22)
[2019-02-27] MEDS ORDERED: *HR* OxyCODONE/APAP 5/325 TABLET PO PRN ×2 (11:00→14:22)
[2019-02-27] MEDS ORDERED: *HR* HYDROmorphone (PF) 1 MG/ML SYRINGE IVP PRN ×2 (11:00→14:22)
[2019-02-27] MEDS ORDERED: Morphine Sulfate 2 MG/ML SYRINGE IVP PRN ×2 (11:00→14:22)
[2019-02-27] MEDS ORDERED: Acetaminophen IV 1,000 MG/100 ML INFUS..BTL IVPB STA (11:06)
[2019-02-27] MEDS ORDERED: Oxytocin 20 units/ LR 1000 mL 20 UNIT/1,000 ML BAG IVC ONE (12:45)
[2019-02-27] MEDS ORDERED: Sennosides 8.6 MG TABLET PO PRN (14:22)
[2019-02-27] MEDS ORDERED: Oxytocin 20 units/ LR 1000 mL 20 UNIT/1,000 ML BAG IVC SCH (14:22)
[2019-02-27] MEDS ORDERED: Simethicone 80 MG TAB.CHEW PO PRN (14:22)
[2019-02-27] MEDS ORDERED: Ondansetron 4 MG/2 ML VIAL IVP PRN (14:22)
[2019-02-27] MEDS ORDERED: Rho Immune Globulin 1,500 UNIT SYRINGE IM ONE (14:22)
[2019-02-27] MEDS ORDERED: valACYclovir 500 MG TABLET PO SCH (14:22)
[2019-02-27] MEDS ORDERED: Prenatal Vit/FA 1 EACH TABLET PO SCH ×2 (14:22)
[2019-02-27] MEDS: Ibuprofen 600 MG TABLET PO PRN (20:46)
[2019-02-28] MEDS: Ibuprofen 600 MG TABLET PO PRN ×2 (04:51→19:38)
[2019-02-28 07:13] LABS: Basophils % 0.3 %; Eosinophils # 0.1 K/mcL (0.0-0.6); Eosinophils % 0.7 %; Hematocrit 32.8 % (35.3-44.9); Hemoglobin 11.2 g/dL (11.5-15.4); Immature Granulocytes % 1.3 % (0-4); Lymphocytes # 0.9 K/mcL (0.6-4.6); Lymphocytes % 7.9 %; Mean Corpuscular HGB Conc 34.1 g/dL (31.6-35.5); Mean Corpuscular Hemoglobin 30.3 pg (28.0-33.3); Mean Corpuscular Volume 88.6 fL (83.0-100.0); Mean Platelet Volume 10.2 fL (9.4-12.4); Monocytes % 8.6 %; Neutrophils # 9.6 K/mcL (1.6-8.9); Platelet Count 170 K/mcL (140-400); Segmented Neutrophils % 81.2 %; White Blood Count 11.9 K/mcL (4.3-11.1)
[2019-02-28] MEDS: *HR* OxyCODONE/APAP 5/325 TABLET PO PRN (21:14)
[2019-03-01] MEDS: Ibuprofen 600 MG TABLET PO PRN (05:56)
[2019-03-01] MEDS: *HR* OxyCODONE/APAP 5/325 TABLET PO PRN (09:20)
[2019-03-01 09:51] VITALS: BP 113/70
== END 2019-03-01 13:05 | disposition home or self-care (01) | DRG 785 ==
LOC: 1NENULAB 05:43 → 1NENUOBS 14:12
PROVIDERS: ADMIT Student in an Organized Health Care Education/Training Program; ATTEND Student in an Organized Health Care Education/Training Program